=== PATIENT | female | born 1955 | race Caucasian/White ===

== ENCOUNTER 2021-10-16 10:11 | Outpatient (CLI) | payer MEDICARE | END 2021-10-16 10:12 | disposition home or self-care (01) | LOC: CSHMAMMO 10:11 | PROVIDERS: ATTEND Student in an Organized Health Care Education/Training Program | DX: Z13.820 Encounter for screening for osteoporosis (principal); N95.9 Unspecified menopausal and perimenopausal disorder | CPT/HCPCS: 77080 ==

== ENCOUNTER 2022-05-22 16:23 | Outpatient (CLI) | payer MEDICARE | END 2022-05-22 16:24 | disposition home or self-care (01) | LOC: CSHRAD 16:23 | PROVIDERS: ATTEND Student in an Organized Health Care Education/Training Program | DX: M25.512 Pain in left shoulder (principal); M19.012 Primary osteoarthritis, left shoulder ==

== ENCOUNTER 2023-12-31 12:38 | Outpatient (CLI) | payer MEDICARE | END 2023-12-31 12:39 | disposition home or self-care (01) | LOC: CSHMAMMO 12:38 | PROVIDERS: ATTEND Student in an Organized Health Care Education/Training Program | DX: Z12.31 Encounter for screening mammogram for malignant neoplasm of breast (principal); Z78.0 Asymptomatic menopausal state; M85.89 Other specified disorders of bone density and structure, multiple sites; Z91.89 Other specified personal risk factors, not elsewhere classified | CPT/HCPCS: 77063; 77067; 77080 ==

== ENCOUNTER 2025-01-09 10:59 | Outpatient (CLI) | payer MEDICARE | END 2025-01-09 11:00 | disposition home or self-care (01) | LOC: CSHCT 10:59 | PROVIDERS: ATTEND Student in an Organized Health Care Education/Training Program | DX: Z12.2 Encounter for screening for malignant neoplasm of respiratory organs (principal); Z87.891 Personal history of nicotine dependence | CPT/HCPCS: 71271 ==